=== PATIENT | male | born 1945 | race Caucasian/White ===

== ENCOUNTER → 2018-04-20 08:24 | Outpatient (CLI) | payer MEDICARE, SELFPAY ==
[2018-04-20 10:40] LABS: PSA,Total- Diagnostic 1.17 ng/mL (0.0-4.0)
[2018-04-20 10:42] LABS: AST(SGOT) 31 U/L (15-37); Alanine Aminotransfer ALT/SGPT 54 U/L (16-61); Albumin, Serum 3.7 g/dL (3.2-5.0); Alkaline Phosphatase 81 U/L (45-117); Bilirubin, Direct 0.26 mg/dL (0.00-0.30); Cholesterol 137 mg/dL (200); Globulin 3.3 g/dL (2.2-4.2); High Density Lipoprotein 71 mg/dL; Triglycerides 53 mg/dL; Very Low Density Lipoprotein 11 mg/dL (5-40)
== END ==
PROVIDERS: Family Provider Family Medicine; PCP Family Medicine; Visit Provider Internal Medicine Cardiovascular Disease
DX: N40.0 Benign prostatic hyperplasia without lower urinary tract symptoms (principal); E78.5 Hyperlipidemia, unspecified; Z79.899 Other long term (current) drug therapy
CPT/HCPCS: 36415; 80061; 80076; 84153

== ENCOUNTER → 2019-01-08 | Outpatient (CLI) | payer MEDICARE, SELFPAY ==
[2017-12-28 13:24] VITALS: BMI 21.4
[2019-01-08 10:22] LABS: AST(SGOT) 27 U/L (15-37); Alanine Aminotransfer ALT/SGPT 37 U/L (16-61); Alkaline Phosphatase 96 U/L (45-117); Bilirubin, Direct 0.26 mg/dL (0.00-0.30); Cholesterol 157 mg/dL (200); Globulin 3.3 g/dL (2.2-4.2); High Density Lipoprotein 78 mg/dL; Protein, Total 7.3 g/dL (6.4-8.2); Triglycerides 59 mg/dL; Very Low Density Lipoprotein 12 mg/dL (5-40)
== END | disposition home or self-care (01) ==
PROVIDERS: Family Provider Family Medicine; PCP Family Medicine; Referring Provider Internal Medicine Cardiovascular Disease; Visit Provider Internal Medicine Cardiovascular Disease
DX: E78.5 Hyperlipidemia, unspecified (principal)
CPT/HCPCS: 36415; 80061; 80076

== ENCOUNTER → 2019-10-17 15:04 | Outpatient (CLI) | payer MEDICARE, SELFPAY ==
[2019-07-15 09:53] VITALS: BMI 20.3
[2019-10-17 17:42] LABS: Absolute Lymphocyte Count 1.83 X10^3/uL (0.83-4.51); Basophil# 0.02 X10^3/uL; Basophil% 0.3 % (0-1); Eosinophil# 0.12 X10^3/uL; Eosinophils% 1.8 % (0-5); Hemoglobin 15.3 g/dL (13.0-16.5); Lymphocyte # 1.83 X10^3/ul (4.0); Lymphocyte % 27.1 % (19-41); Mean Corp Hgb Conc 33.3 g/dL (32-36); Mean Corpuscular Volume 93.1 fL (80-94); Mean Platelet Vol. 9.6 fl (6.2-12.0); Monocyte# 0.75 X10^3/uL; Monocyte% 11.1 % (0-10); NRBC Flagged by Analyzer 0 % (0-5); Neutrophil # 4.01 X10^3/uL (2.7-7.7); Neutrophil % 59.4 % (47-70); Platelet Count 341 K/mm3 (150-450); RBC Distribution Width CV 12.3 % (11.6-14.6); RBC Distribution Width SD 42.4 fl (35.1-43.9); Red Blood Count 4.94 M/mm3 (4.6-6.2); White Blood Count 6.8 K/mm3 (4.4-11.0)
[2019-10-17 17:44] LABS: Erythrocyte Sedimentation Rate 4 mm/hr (0-20)
[2019-10-17 18:16] LABS: ALB/GLOB Ratio 1.1 RATIO (0.9-2.4); AST(SGOT) 20 U/L (15-37); Alanine Aminotransfer ALT/SGPT 33 U/L (16-61); Albumin, Serum 3.9 g/dL (3.2-5.0); Alkaline Phosphatase 87 U/L (45-117); Anion Gap 5 (5-15); BUN 14 mg/dL (7-18); BUN/Creat Ratio 14.4 RATIO (10-20); Chloride 105 mmol/L (98-107); Cholesterol 154 mg/dL (200); Creatinine, Serum 0.97 mg/dL (0.70-1.30); EST Glomerular Filtration Rate 81 mL/min (>60); Est Glom Filt Rate - Afr Amer 97 mL/min (>60); Globulin 3.6 g/dL (2.2-4.2); Glucose 90 mg/dL (74-106); High Density Lipoprotein 94 mg/dL; Potassium 4.4 mmol/L (3.5-5.1); Protein, Total 7.5 g/dL (6.4-8.2); Sodium Level 137 mmol/L (136-145); Thyroid Stim Hormone (TSH) 1.35 uIU/mL (0.358-3.74); Triglycerides 45 mg/dL; Very Low Density Lipoprotein 9 mg/dL (5-40)
[2019-10-17 20:02] LABS: Microalbumin,Random Urine 13.9 mg/L (NO RANGE EST.); Microalbumin:Creatinine Ratio 15.2 mg/g CRE (<30 mg/g CRE)
== END ==
PROVIDERS: PCP Family Medicine; Visit Provider Family Medicine
DX: K51.90 Ulcerative colitis, unspecified, without complications (principal); I10 Essential (primary) hypertension
CPT/HCPCS: 36415; 80053; 80061; 82043; 82570; 84443; 85025; 85652

== ENCOUNTER → 2019-10-31 08:17 | Outpatient (CLI) | payer MEDICARE, SELFPAY ==
[2019-07-15 09:53] VITALS: BMI 20.3
--- NOTE | 2019-10-31 08:19 | US_ITS ---
STUDY: SCROTUM ULTRASOUND REASON FOR EXAM: Male, 74 years old. RT PALPABLE LESION TECHNIQUE: Ultrasound evaluation of the scrotum was performed with color Doppler and static mayer-scale imaging. COMPARISON: None. FINDINGS: RIGHT TESTICLE INTRATESTICULAR: There is a normal size of the right testicle. The right testicle measures 3.4 cm x 3.2 cm x 2.6 cm. There is a homogenous echotexture. There is normal arterial and normal venous vascularity. There is no demonstrated right testicular mass or cyst. EXTRATESTICULAR: The epididymis is normal in size. The epididymis head measures 1.1 cm x 0.5 cm x 0.9 cm. There is normal vascularity of the epididymis. There are 2 well-defined cystic structures within the epididymis, without internal echoes, consistent with an epididymal cyst. The larger measures 6 mm x 5 mm x 3 mm. There is a moderate size hydrocele. There is no demonstrated varicocele. There is no demonstrated extratesticular mass or cyst. LEFT TESTICLE INTRATESTICULAR: There is a normal size of the left testicle. The left testicle measures 3.9 cm x 3 cm x 1.7 cm. There is a homogenous echotexture. There is normal arterial and normal venous vascularity. There is no demonstrated left testicular mass or cyst. EXTRATESTICULAR: The epididymis is normal in size. The epididymis head measures 1.5 cm x 0.9 size by 1.0 cm. There is normal vascularity of the epididymis. There is a well-defined cystic structure within the epididymis, without internal echoes, consistent with an epididymal cyst. This measures 6 mm x 7 mm x 6 mm. There is a small hydrocele. There is no demonstrated varicocele. There is no demonstrated extratesticular mass or cyst. US/Testicular with Arterial Flow IMPRESSION: Bilateral hydroceles right greater than left. Small bilateral epididymal cysts. Electronically Signed: Benjie Odonnell, at 10:19 EST , Service support ,
== END ==
PROVIDERS: PCP Family Medicine; Referring Provider Family Medicine; Visit Provider Family Medicine
DX: N50.89 Other specified disorders of the male genital organs (principal)
CPT/HCPCS: 76870; 93976

== ENCOUNTER 2019-11-01 09:33 | Day surgery (SDC) | payer MEDICARE, SELFPAY ==
[2019-07-15 09:53] VITALS: BMI 20.3
--- NOTE | 2019-11-01 09:47 | EKG12_ITS ---
Test Reason : PRE OP Blood Pressure : / mmHG Vent. Rate : 073 BPM Atrial Rate : 073 BPM P-R Int : 166 ms QRS Dur : 090 ms QT Int : 404 ms P-R-T Axes : 074 -09 055 degrees QTc Int : 445 ms Normal sinus rhythm Inferior infarct , age undetermined Abnormal ECG No previous ECGs available Confirmed by EMILIA GODINEZ, LISA ([id number]), associate editor LES DONOVAN ([id number]) on 11/05/2019 8:58:26 AM Referred By: Camden Chino Confirmed By:LISA NIETO MD
[2019-11-01 10:05] VITALS: BP 145/74; PULSE 75; RESP 16; TEMP 36.6; O2SAT 99; BMI 20.7
[2019-11-01] MEDS: Lactated Ringers 1,000 ML 100 ML IV ×2 (10:18→12:05)
--- NOTE | 2019-11-01 11:10 | PHA_PTH ---
PATIENT: EDOUARD BAUER [place] [facility] [id number] AGE/SX: 74/M ROOM: RE11/01/[address]: Dr. Camden Chino MD : [id number] BED: DIS: 11/01/2019 SPEC #: [id number] RECD: 11/01/19 13:08 STATUS: COURTNEY MANAS #: [id number] LUCERO: 11/01/19 11:[address]: Camden Chino DEPT: SURGICAL PATHOLOGY RECD BY: Thierno Blanca ENTERED: 11/01/19 13:32 SP TYPE: PHARYNX BX OTHR DR: Dr. Camden Gaytan MD Tissues: Pharynx, NOS Procedures: Surgery Specimen Level IV HEADER OPERATION: Destruction of nasopharyngeal lesion PRE-OP DIAGNOSIS: Pharyngeal bursitis TISSUE SUBMITTED: Nasopharynx biopsy MICROSCOPIC DIAGNOSIS Nasopharynx, biopsy: Fragments of benign respiratory and squamous mucosa with minute lymphoid aggregates, negative for malignancy. See comment. SJ:seferino 11/04/19 COMMENT The findings may represent tonsillar/adenoid tissue. No obvious cyst lining is noted. Reactive changes are also noted. MICROSCOPIC DESCRIPTION Slides are reviewed. GROSS DESCRIPTION Received in fixative is one container labeled with the patient's name and designated nasopharynx biopsy. The specimen consists of multiple irregular fragments of light romo soft tissue that in aggregate measure 0.5 x 0.5 x 0.1 cm. The specimen is totally submitted in one cassette. / TAMMY:seferino 11/01/19 TC:5 CPT: 36315
--- NOTE | 2019-11-01 11:42 | OP.PCM_ITS ---
Problem List (1) Abscess of nasopharynx Status: Chronic Report of Operation Date of Procedure: 11/01/19 Pre-Operative Diagnosis: Draining Tornwalt's cyst Post-Operative Diagnosis: Same Surgery/Procedure Performed:: Excision of nasopharyngeal Tornwald's cyst Description of Surgical Findings:: Cecilio is a 74-year-old male who presents for evaluation of expectoration of globular tissue like objects with a bloody apical crust. 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 Given the ongoing nature of this and the significant irritation posed from this drainage excision was offered and he was eager to proceed. The risks, alternatives, potential complications, and benefits were discussed at length and any questions answered to the patient and/or caregiver's satisfaction. Witnessed informed consent was obtained in the office, and the patient and/or caregiver was agreeable to proceed. Procedure went as follows: The patient was identified in the preoperative holding and brought to the operating room, placed under general anesthesia and intubated. When appropriate anesthesia was obtained the head of bed was then rotated and the patient prepped and draped in usual sterile fashion. A Sebastien- Yordan mouthgag was then placed and the patient suspended from the [place] stand. Red rubber catheters were placed into each nostril and brought through the mouth to elevate the soft palate. Using a laryngeal mirror the adenoid bed visualized. There is noted to be a asymmetrical granular tissue bed that was very friable to gentle manipulation predominantly on the right side suggesting a recently ruptured nasopharyngeal cyst likely from manipulation in the office. A portion of this was then removed with a Gamez Hunter forceps for specimen a nd then the base of the nasopharyngeal cyst granulation broadly cauterized using suction electrocautery for electrodesiccation. Upon completion the rubber catheters were removed and the oral and nasal cavities irrigated with saline solution. An NG tube was placed to decompress the stomach and the patient returned to anesthesia, was revived and extubated without complication having tolerated the procedure well. Type of Anesthesia:: General Anesthesiologist: Sivakumar Jordan Special Medications: none Specimen's removed: nasopharyngeal lesion Drains: none Estimated Blood Loss (mL): 5 mL Fluids Replaced: 1000 mL Grafts/Implants Used: none - Complications none - Admit VTE Documentation VTE Present on Admission: No VTE Mechan Device Prophylaxis: SCD's VTE Pharm Prophylaxis ordered?: No
--- NOTE | 2019-11-01 11:48 | DCINST_ITS ---
- Discharge Diagnoses Current Active Problems: Current Active and Chronic Problems (Last Reviewed 07/15/19 @ 10:23 by FERNANDO Ravi) Abscess of nasopharynx (Chronic) You will use the following diet at home:: No restrictions Discharge Activity: Return to Normal Activity Call your doctor if your incision/area has: Sudden Increased Bleeding Call your doctor if you observe: Fever of 101 or Higher, Uncontrolled pain Allergies/Adverse Reactions: Allergies No Known Allergies Allergy (Verified 11/01/19 09:58) Medications to take at Discharge aspirin 81 mg tablet,delayed release 81 mg PO QDAY 10/24/17 mesalamine 1.2 gram tablet,delayed release 2.4 g PO QDAY 10/24/17 tamsulosin 0.4 mg capsule 0.4 mg PO QHS cap 10/24/17 nitroglycerin 0.4 mg sublingual tablet 0.4 mg SUBLINGUAL Q5-15M PRN #25 tab 01/14/19 lisinopril 10 mg tablet 10 mg PO QDAY #90 tab 02/04/19 atorvastatin 40 mg tablet 40 mg PO QDAY #90 tab 05/20/19 Primary Care Physician: Camden Gaytan MD [Primary Care Provider] - Test Results: Test results from this visit will be discussed in further detail at your follow- up appointment, if applicable. Please Follow Up With: Camden Chino MD When: 2 weeks
[2019-11-01 12:07] VITALS: BP 145/74; BP 149/91; PULSE 80; RESP 14; TEMP 36.1; O2SAT 95
[2019-11-01 12:15] VITALS: BP 145/74; BP 153/89; PULSE 76; RESP 16; O2SAT 96
[2019-11-01 12:18] VITALS: BP 145/74; BP 155/89; PULSE 65; RESP 16; O2SAT 97
[2019-11-01 12:22] VITALS: BP 145/74; BP 145/86; PULSE 69; RESP 16; TEMP 36.1; O2SAT 94
[2019-11-01 13:28] VITALS: BP 133/69; BP 145/74; PULSE 64; RESP 16; TEMP 36.2; O2SAT 94
== END 2019-11-01 13:30 | disposition home or self-care (01) ==
LOC: SDC 09:35 → AC 09:37
PROVIDERS: PCP Family Medicine; Referring Provider Otolaryngology; Visit Provider Otolaryngology
PROC: (CPT 42808; principal; 2019-11-01 10:55)
DX: J39.2 Other diseases of pharynx (principal); E78.00 Pure hypercholesterolemia, unspecified; I10 Essential (primary) hypertension; I25.10 Atherosclerotic heart disease of native coronary artery without angina pectoris; I34.1 Nonrheumatic mitral (valve) prolapse; Z85.828 Personal history of other malignant neoplasm of skin; Z79.82 Long term (current) use of aspirin; Z79.899 Other long term (current) drug therapy; Z87.891 Personal history of nicotine dependence
CPT/HCPCS: 00170; 42808; 88305; 93005; J7120; J2310; J2405

== ENCOUNTER → 2020-04-30 | Outpatient (CLI) | payer MEDICARE, SELFPAY ==
[2020-04-27 09:31] VITALS: BMI 19.7
[2020-04-30 08:14] LABS: AST(SGOT) 30 U/L (15-37); Alanine Aminotransfer ALT/SGPT 48 U/L (16-61); Albumin, Serum 3.7 g/dL (3.2-5.0); Alkaline Phosphatase 82 U/L (45-117); Bilirubin, Direct 0.29 mg/dL (0.00-0.30); Cholesterol 156 mg/dL (200); Globulin 3.4 g/dL (2.2-4.2); High Density Lipoprotein 91 mg/dL; Protein, Total 7.1 g/dL (6.4-8.2); Triglycerides 66 mg/dL; Very Low Density Lipoprotein 13 mg/dL (5-40)
== END | disposition home or self-care (01) ==
LOC: LAB 07:26
PROVIDERS: PCP Family Medicine; Referring Provider Internal Medicine Cardiovascular Disease; Visit Provider Internal Medicine Cardiovascular Disease
DX: I25.10 Atherosclerotic heart disease of native coronary artery without angina pectoris (principal); E78.00 Pure hypercholesterolemia, unspecified
CPT/HCPCS: 36415; 80061; 80076

== ENCOUNTER → 2020-05-21 | Outpatient (CLI) | payer MEDICARE, SELFPAY ==
[2020-04-27 09:31] VITALS: BMI 19.7
--- NOTE | 2020-05-21 07:59 | ECHOD_ITS ---
Reason For Study: Valve Replacement Eval Procedure This was a 2D Doppler, Color Flow transthoracic echocardiogram. The exam was of adequate technical quality. Exam performed in department. Left Ventricle Normal LV size. Left ventricular systolic function is normal. The estimated ejection fraction is 65 %. Diastolic function is indeterminate. No regional wall motion abnormalities noted. Right Ventricle Normal RV size. Normal systolic function. Atria The left atrium is mildly enlarged. Normal right atrium. No doppler evidence for ASD. Mitral Valve Mild diffuse mitral valve thickening. Mitral valve doming/Hockey Sticking. Trivial mitral valve insufficiency. An annuloplasty ring is noted in the mitral position. Tricuspid Valve Normal tricuspid valve. Mild tricuspid valve insufficiency. Right ventricular systolic pressure estimated to be 26 mmHg. Aortic Valve Trisinus/trileaflet aortic valve. Mild focal aortic valve thickening. Pulmonic Valve The pulmonic valve is not well visualized. Trivial pulmonic valve insufficiency. Great Vessels Normal sized aortic root. Pericardium/Pleural No pericardial effusion. MMode/2D Measurements & Calculations LVIDd: 4.0 cm IVSd: 1.00 cm Ao root diam: 2.4 cm LVIDs: 2.1 cm LVPWd: 0.86 cm RVDd: 3.1 cm FS: 46.2 % LAV(MOD-bp): 31.2 ml LVAd ap4: 21.6 cm2 SV(MOD-sp4): 36.0 ml LAV(MOD-bp) Indexed: 16.6 ml/m2 EDV(MOD-sp4): 52.1 ml LAV(MOD-sp2): 28.0 ml EDV(sp4-el): 53.3 ml LAV(MOD-sp4): 32.6 ml LVAs ap4: 10.5 cm2 ESV(MOD-sp4): 16.1 ml ESV(sp4-el): 15.3 ml EF(MOD-sp4): 69.1 % EF(sp4-el): 71.4 % SV(sp4-el): 38.0 ml LA A4 area: 14.2 cm2 LA dimension(2D): 3.7 cm RA A4 area: 11.4 cm2 Time Measurements MV dec time: 0.27 sec Doppler Measurements & Calculations MV E max [place]: 154.5 cm/sec Lat Peak E' [place]: 10.3 cm/sec Med Peak E' [place]: 5.3 cm/sec MV A max [place]: 164.1 cm/sec E/E' lat: 15.1 E/E' med: 29.2 MV E/A: 0.94 MV V2 max: 183.4 cm/sec MV P1/2t max [place]: 151.0 cm/sec Ao V2 max: 116.8 cm/sec MV max P.5 mmHg MV P1/2t: 138.0 msec Ao max P.5 mmHg MV V2 mean: 108.0 cm/sec Ao V2 mean: 82.7 cm/sec MV mean P.1 mmHg MV dec slope: 320.4 cm/sec2 Ao mean P.9 mmHg MV V2 VTI: 54.5 cm MVA(P1/2t): 1.6 cm2 Ao V2 VTI: 24.7 cm LV V1 max: 92.5 cm/sec PA V2 max: 106.9 cm/sec TR max [place]: 240.2 cm/sec LV V1 max P.4 mmHg TR max P.1 mmHg Interpretation Summary Left ventricular systolic function is normal. The estimated ejection fraction is 65 %. The left atrium is mildly enlarged. An annuloplasty ring is noted in the mitral position. Mild diffuse mitral valve thickening. Mitral valve doming/Hockey Sticking Trivial mitral valve insufficiency. Mild tricuspid valve insufficiency. Mild focal aortic valve thickening. Trivial pulmonic valve insufficiency. Right ventricular systolic pressure estimated to be 26 mmHg. Diastolic function is indeterminate. Ordering Physician: Lloyd Avila Referring Physician: Camden Gaytan Performed By: Jessica Jimenez RVT, RDCS and Student
== END | disposition home or self-care (01) ==
LOC: CVS 07:59
PROVIDERS: PCP Family Medicine; Referring Provider Internal Medicine Cardiovascular Disease; Visit Provider Internal Medicine Cardiovascular Disease
DX: I25.10 Atherosclerotic heart disease of native coronary artery without angina pectoris (principal); E78.00 Pure hypercholesterolemia, unspecified; I10 Essential (primary) hypertension; Z95.1 Presence of aortocoronary bypass graft; Z98.890 Other specified postprocedural states
CPT/HCPCS: 93306

== ENCOUNTER → 2020-09-29 12:11 | Outpatient (CLI) | payer MEDICARE, SELFPAY ==
[2020-04-27 09:31] VITALS: BMI 19.7
--- NOTE | 2020-09-29 12:15 | RAD_ITS ---
STUDY: X-RAY CHEST REASON FOR EXAM: Male, 74 years old. atypical pneumonia TECHNIQUE: PA and lateral views of the chest. COMPARISON: 04/09/2015. FINDINGS: The lungs are clear and expanded. There is no demonstrated pleural abnormality. Sternal cerclage wires are present from a prior sternotomy. Normal cardiac size. Normal mediastinum and praful. Normal visualized pulmonary arteries. There is atherosclerotic calcification of the aortic arch with tortuosity. Normal visualized thoracic spine. Normal visualized ribs, clavicles, and shoulders. There is no demonstrated abnormality of the visualized soft tissue structures of the upper abdomen. RAD/Chest PA and Lateral IMPRESSION: No acute cardiopulmonary disease. Electronically Signed: Gladys Alvarez MD at 0:29 EST , Service support ,
== END ==
PROVIDERS: PCP Family Medicine; Referring Provider Family Medicine; Visit Provider Family Medicine
DX: J18.9 Pneumonia, unspecified organism (principal)
CPT/HCPCS: 71046

== ENCOUNTER → 2021-02-01 10:05 | Outpatient (CLI) | payer MEDICARE, SELFPAY ==
[2020-04-27 09:31] VITALS: BMI 19.7
[2021-02-01 12:17] LABS: Absolute Lymphocyte Count 1.53 X10^3/uL (0.83-4.51); Absolute Neutrophil Count 3.1 X10^3/uL (2.0-7.7); Basophil# 0.02 X10^3/uL; Basophil% 0.4 % (0-1); Eosinophil# 0.15 X10^3/uL; Eosinophils% 2.7 % (0-5); Hematocrit 46.7 % (40-54); Hemoglobin 15.4 g/dL (13.0-16.5); Lymphocyte # 1.53 X10^3/ul (0.83-4.51); Lymphocyte % 27.8 % (19-41); Mean Platelet Vol. 9.6 fl (6.2-12.0); Monocyte% 12.7 % (0-10); NRBC Flagged by Analyzer 0 % (0-5); Neutrophil # 3.09 X10^3/uL (2.7-7.7); Neutrophil % 56.2 % (47-70); Platelet Count 312 K/mm3 (150-450); RBC Distribution Width CV 12.3 % (11.6-14.6); RBC Distribution Width SD 42.6 fl (35.1-43.9); Red Blood Count 4.97 M/mm3 (4.6-6.2); White Blood Count 5.5 K/mm3 (4.4-11.0)
[2021-02-01 12:48] LABS: ALB/GLOB Ratio 1.1 RATIO (0.9-2.4); AST(SGOT) 22 U/L (15-37); Alanine Aminotransfer ALT/SGPT 30 U/L (16-61); Albumin, Serum 3.8 g/dL (3.2-5.0); Alkaline Phosphatase 86 U/L (45-117); Anion Gap 9 (5-15); BUN 18 mg/dL (7-18); BUN/Creat Ratio 17.8 RATIO (10-20); CRP < 2.90 mg/L (0.0-3.0); Calcium,Total 8.9 mg/dL (8.5-10.1); Chloride 105 mmol/L (98-107); Cholesterol 167 mg/dL (200); Creatinine, Serum 1.01 mg/dL (0.70-1.30); EST Glomerular Filtration Rate 77 mL/min (>60); Est Glom Filt Rate - Afr Amer 93 mL/min (>60); Globulin 3.6 g/dL (2.2-4.2); Glucose 93 mg/dL (74-106); High Density Lipoprotein 93 mg/dL; Protein, Total 7.4 g/dL (6.4-8.2); Sodium Level 139 mmol/L (136-145); Triglycerides 100 mg/dL; Very Low Density Lipoprotein 20 mg/dL (5-40)
[2021-02-01 12:57] LABS: Microalbumin,Random Urine 49.3 mg/L (NO RANGE EST.)
== END ==
PROVIDERS: PCP Family Medicine; Visit Provider Family Medicine
DX: K51.90 Ulcerative colitis, unspecified, without complications (principal); I10 Essential (primary) hypertension
CPT/HCPCS: 36415; 80053; 80061; 82043; 82570; 85025; 86140

== ENCOUNTER → 2021-08-02 09:01 | Outpatient (CLI) | payer MEDICARE, SELFPAY ==
[2021-08-02 11:00] LABS: Anion Gap 3 (5-15); BUN 19 mg/dL (7-18); BUN/Creat Ratio 18.4 RATIO (10-20); Calcium,Total 9.3 mg/dL (8.5-10.1); Chloride 108 mmol/L (98-107); Creatinine, Serum 1.03 mg/dL (0.70-1.30); EST Glomerular Filtration Rate 75 mL/min (>60); Est Glom Filt Rate - Afr Amer 91 mL/min (>60); Ferritin 84 ng/mL (26-388); Glucose 64 mg/dL (74-106); Magnesium 2.3 mg/dL (1.6-2.6); Potassium 4.1 mmol/L (3.5-5.1); Sodium Level 140 mmol/L (136-145)
== END ==
PROVIDERS: PCP Family Medicine; Referring Provider Family Medicine; Visit Provider Family Medicine
DX: R25.2 Cramp and spasm (principal)
CPT/HCPCS: 36415; 80048; 82728; 83735

== ENCOUNTER 2021-10-19 15:12 | Outpatient (CLI) | payer MEDICARE, SELFPAY ==
--- NOTE | 2021-10-19 15:15 | RAD_ITS ---
History: NECK AND SHOULDER PAIN Cervical spine 7 views including flexion and extension lateral views: Findings: No fracture or subluxation. Disc space narrowing and vertebral body spurring noted at the C5-6 and C6-7 levels. The right C3-4 and C4-5 neural foramina are narrowed secondary to uncinate joint hypertrophy and facet arthropathy. Limited range of motion with flexion and extension. Precervical soft tissues are normal. IMPRESSION:No acute abnormality. Spondylosis as described. at 1537 Reported and signed by: Brian Gallardo MD Electronically Signed: Brian Gallardo MD at 15:36 EST Tel , Service support , RAD/Cerv Spine Obl/Flex/Ext Comp
[2021-10-19 15:19] LABS: Lyme Ab Screen Interpretation REF LAB
[2021-10-19 17:43] LABS: Absolute Lymphocyte Count 1.91 X10^3/uL (0.83-4.51); Absolute Neutrophil Count 4.4 X10^3/uL (2.0-7.7); Basophil# 0.02 X10^3/uL; Basophil% 0.3 % (0-1); Eosinophil# 0.21 X10^3/uL; Eosinophils% 2.9 % (0-5); Hematocrit 43.2 % (40-54); Hemoglobin 14.7 g/dL (13.0-16.5); Lymphocyte # 1.91 X10^3/ul (0.83-4.51); Lymphocyte % 26.2 % (19-41); Mean Corpuscular Hgb 31.7 pg (27.0-32.0); Mean Corpuscular Volume 93.3 fL (80-94); Mean Platelet Vol. 9.6 fl (6.2-12.0); Monocyte# 0.76 X10^3/uL; Monocyte% 10.4 % (0-10); NRBC Flagged by Analyzer 0 % (0-5); Neutrophil # 4.37 X10^3/uL (2.7-7.7); Neutrophil % 60.1 % (47-70); Platelet Count 331 K/mm3 (150-450); RBC Distribution Width CV 12.3 % (11.6-14.6); RBC Distribution Width SD 42.3 fl (35.1-43.9); Red Blood Count 4.63 M/mm3 (4.6-6.2); White Blood Count 7.3 K/mm3 (4.4-11.0)
[2021-10-19 17:58] LABS: Vitamin D,25 Hydroxy 39.9 ng/mL
[2021-10-19 18:07] LABS: ALB/GLOB Ratio 1.1 RATIO (0.9-2.4); AST(SGOT) 20 U/L (15-37); Alanine Aminotransfer ALT/SGPT 35 U/L (16-61); Albumin, Serum 3.9 g/dL (3.2-5.0); Alkaline Phosphatase 73 U/L (45-117); Anion Gap 5 (5-15); BUN 20 mg/dL (7-18); BUN/Creat Ratio 20.7 RATIO (10-20); CRP < 2.90 mg/L (0.0-3.0); Chloride 106 mmol/L (98-107); Creatinine, Serum 0.96 mg/dL (0.70-1.30); EST Glomerular Filtration Rate 81 mL/min (>60); Est Glom Filt Rate - Afr Amer 98 mL/min (>60); Globulin 3.6 g/dL (2.2-4.2); Glucose 91 mg/dL (74-106); Magnesium 2.3 mg/dL (1.6-2.6); Potassium 4.3 mmol/L (3.5-5.1); Protein, Total 7.5 g/dL (6.4-8.2); Sodium Level 138 mmol/L (136-145)
[2021-10-21 15:00] LABS: Lyme Scn Total Ab w/Rflx <0.91 ISR (0.00-0.90)
== END 2021-10-19 23:59 | disposition short-term general hospital (02) ==
LOC: MTLAB 15:13
PROVIDERS: PCP Family Medicine; Referring Provider Family Medicine; Visit Provider Family Medicine
DX: M54.2 Cervicalgia (principal); M25.50 Pain in unspecified joint
CPT/HCPCS: 36415; 72052; 80053; 82306; 83735; 85025; 86140; 86618

== ENCOUNTER 2021-11-11 10:30 | Outpatient (RCR) | payer MEDICARE, SELFPAY ==
--- NOTE | 2021-10-21 13:22 | HP.PTEVAL_ITS ---
Patient's Visit Information EDOUARD BAUER is a 75 year old M referred to Physical Therapy by Dr. Camden Gaytan MD with a diagnosis of CERVICALALGIA ON RIGHT, MILD MILD RADIATION. Date of Evaluation: 10/21/21 Physical Therapist: Main Huynh, PT, Cert MDT, OCS - Visit Plan Frequency: 2x /Week Duration: 6 Weeks Plan: PT INTERVTIONS US,CP,ICTX 16#-25# ,CERVIACL PSOTURAL EX' S AND MANUAL THERPY - Subjective This 75 y/o female presents to physical therapy with cervical pain radiating right UT . Patient has had these symptoms ~ 1 month which has progressively worse . Seen DR had x-rays and recommended PT. Aggravating factors turning head right ,extension .flexion with sharp pain. Alleviating rest. Denies paresthesia/tingling . Denies CALDERON/dizziness/tinnitus. Tried chiropractor manipulator. Pain affects sleeping . Patient has had no h/o trauma. Patient condition affects QOL and function. Patient goals to decrease pain. SOCIAL: . VOCATION: retired - Pain Right Neck Pain Intensity (Out of 10): 8 Pain Intensity Range: 10 - Objective POSTURE: mild forward posture rounded shoulders. NEURO: denies paresthesia/tingling ,reflexes C5-6-7 1/3..mytomes intact. PALAPTION: tender UT, levator. CERVICAL ROM: flexion min loss, extension mod loss pain ,lateral flexion /rotation mod loss pain to right. MMT: grossly 4/5 except 4-/5 - Special Tests C/S Radiculapathy - Left Upper limb tension test: Negative C/S Radiculapathy - Right Upper limb tension test: Negative C/S Radiculapathy - Left Spurlings: Negative C/S Radiculapathy - Right Spurlings: Positive C/S Radiculapathy - Left Cervical distraction: Negative C/S Radiculapathy - Right Cervical distraction: Negative C/S Radiculapathy - Left Relief test: Negative C/S Radiculapathy - Right Relief test: Negative C/S Radiculapathy - Valsalva: Negative Sharp Lynette: Negative Vertebral Artery Test: Negative Alar Ligament Test: Negative Cervical Sitting: Protrusion - Mechanical Response: No effect Cervical Sitting: Protrusion - Symptoms During Testing: No effect Cervical Sitting: Retraction - Mechanical Response: No effect Cervical Sitting: Retraction - Symptoms During Testing: Produces Cervical Sitting: Retraction - Symptoms After Testing: No worse Cervical Sitting: Retraction-Extension - Mechanical Response: No effect Cerv Sitting: Retraction-Extension - Symptoms During Testing: Produces Cerv Sitting: Retraction-Extension - Symptoms After Testing: Worse Cervical Sitting: Sidebend Right - Mechanical Response: No effect Cervical Sitting: Sidebend Right - Symptoms During Testing: Produces Cervical Sitting: Sidebend Right - Symptoms After Testing: Worse Cervical Sitting: Sidebend Left - Mechanical Response: No effect Cervical Sitting: Sidebend Left - Symptoms During Testing: Decreases Cervical Sitting: Sidebend Left - Symptoms After Testing: Better Cervical Sitting: Rotation Right - Mechanical Response: No effect Cervical Sitting: Rotation Right - Symptoms During Testing: Produces Cervical Sitting: Rotation Right - Symptoms After Testing: Worse Cervical Sitting: Rotation Left - Mechanical Response: No effect Cervical Sitting: Rotation Left - Symptoms During Testing: Decreases Cervical Sitting: Rotation Left - Symptoms After Testing: Better Cervical Sitting: Flexion - Mechanical Response: No effect Cervical Sitting: Flexion - Symptoms During Testing: Increases Cervical Sitting: Flexion - Symptoms After Testing: No worse - Balance/Special Test Scores Oswestry Neck Score: 15 - Goals Goal 1:: Patient to be I with HEP for posture Goal Time Frame: 4-6 Weeks Goal 2:: Patient to improve posture for ADLS 90% of the time Goal Time Frame: 4-6 Weeks Goal 3:: Patient improve cervical ROM for 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 Goal Time Frame: 4-6 Weeks Goal 4:: Patient to improve neck owestry by 5points to improve function QOL Goal Time Frame: 4-6 Weeks Goal 5:: Patient to improve functional activity and ADLS' to improve Goal Time Frame: 4-6 Weeks - Rehabilitation Potential Physical Therapy Diagnosis: Patient has right lateral foraminal stenosis with pain produces with pain with motion testing to right and extension along with functional activity thus will benefit from skilled PT Rehabilitation Potential: Good - Anticipated Interventions Patient/Client Instruction: Educate patient on: Condition, Plan of Care For the Purpose of:: To decrease pain, To increase ROM, To improve muscle performance and motor function, To increase tolerance to activity/condition/position, To improve ability of physical actions for home/community/work/leisure, To improve health of tissue, To decrease soft tissue restriction, To increase flexibility/ROM Therapeutic Exercise to Include: Strength training, Postural training, Flexibilty training, Active ROM For the Purpose of:: To decrease pain, To increase ROM, To improve muscle performance and motor function, To improve ability to perform ADL's, To improve ability of physical actions for home/community/work/leisure, To improve health of tissue, To decrease soft tissue restriction, To increase flexibility/ROM, To reduce risk of recurrence Manual Therapy Techniques to Include: Mobilization Comment: TRACTION For the Purpose of:: To decrease pain, To increase ROM TENS: Yes IF ES: Yes Cryotherapy (ice pack, ice massage): Yes Ultrasound (thermal/non thermal): Yes For the Purpose of:: To decrease pain, To increase ROM, To improve nutrient delivery to tissue, To increase oxygenation perfusion, To improve health of tissue, To decrease soft tissue restriction Thank you for the opportunity to evaluate your patient. For Medicare and Medicare HMO plans, please review the plan of care and approve it. It will need to be FAXED BACK to us at [phone] for Medicare purposes. For Medicare only, by signing this I certify the plan of care. Please let me know if there are questions or concerns regarding this plan of care. Physician Signature: Date:
== END 2021-11-11 19:00 | disposition home or self-care (01) ==
LOC: PT 10:30
PROVIDERS: PCP Family Medicine; Referring Provider Family Medicine; Visit Provider Family Medicine
DX: M54.2 Cervicalgia (principal)
CPT/HCPCS: 97012; 97035; 97110; 97162

== ENCOUNTER → 2022-03-24 | Outpatient (CLI) | payer MEDICARE, SELFPAY ==
[2022-03-24 10:06] LABS: Anion Gap 5 (5-15); BUN 29 mg/dL (7-18); BUN/Creat Ratio 24.8 RATIO (10-20); Chloride 106 mmol/L (98-107); Creatinine, Serum 1.17 mg/dL (0.70-1.30); EST Glomerular Filtration Rate 65 mL/min (>60); Est Glom Filt Rate - Afr Amer 78 mL/min (>60); Glucose 98 mg/dL (74-106); PSA,Total - Annual Screen 1.09 ng/mL (0.00-4.00); Potassium 4.4 mmol/L (3.5-5.1); Sodium Level 137 mmol/L (136-145)
[2022-03-24 10:08] LABS: AST(SGOT) 23 U/L (15-37); Alanine Aminotransfer ALT/SGPT 34 U/L (16-61); Albumin, Serum 3.7 g/dL (3.2-5.0); Alkaline Phosphatase 78 U/L (45-117); Bilirubin, Direct 0.19 mg/dL (0.00-0.30); Cholesterol 153 mg/dL (200); Globulin 3.5 g/dL (2.2-4.2); High Density Lipoprotein 78 mg/dL; Protein, Total 7.2 g/dL (6.4-8.2); Triglycerides 65 mg/dL; Very Low Density Lipoprotein 13 mg/dL (5-40)
== END | disposition home or self-care (01) ==
LOC: LAB 08:37
PROVIDERS: PCP Family Medicine; Referring Provider Nurse Practitioner Family; Visit Provider Nurse Practitioner Family
DX: Z00.00 Encounter for general adult medical examination without abnormal findings (principal); N40.0 Benign prostatic hyperplasia without lower urinary tract symptoms; I10 Essential (primary) hypertension; M79.10 Myalgia, unspecified site; Z12.5 Encounter for screening for malignant neoplasm of prostate
CPT/HCPCS: 36415; 80048; 80061; 80076; 84153; G0103

== ENCOUNTER → 2022-03-29 | Outpatient (CLI) | payer MEDICARE, SELFPAY ==
--- NOTE | 2022-03-29 08:33 | STRESSREP_ITS ---
Stress Test Report Date: 03-29-2022 Procedure: Pharmacologic stress nuclear imaging study Indications: Shortness of breath/dyspnea on exertion; CAD; CABG; status post mitral valve repair; status post left atrial appendage ligation; postoperative atrial fibrillation; hyperlipidemia; hypertension Consent: Per the patient Procedure: The patient underwent pharmacologic (Regadenoson 0.4mg ) evaluation with a peak heart rate of 85 beats per minute (58%predicted maximal heart rate) and a peak blood pressure of 140/72 mmHg. The baseline ECG demonstrated sinus bradycardia. The peak pharmacologic ECG demonstrated no obvious ECG changes. There were no cardiac dysrhythmias pretest, during pharmacologic infusion, or recovery. There was no complaint of chest discomfort during pharmacologic infusion or recovery. The examination was discontinued secondary to completion of protocol. Impression: 1. Pharmacologic (Regadenoson) evaluation 2. Peak pharmacologic ECG with no obvious ECG changes. 3. There were no cardiac dysrhythmias pretest, during pharmacologic infusion, or recovery. 4. Nuclear images pending Myocardial perfusion imaging study: Technique: The patient was injected with 11.8 millicuries of technetium 99m Cardiolite and subsequently rest SPECT Cardiolite nuclear imaging was obtained in the horizontal long, vertical long, and short axis views. The patient underwent pharmacologic (Regadenoson) evaluation with a peak heart rate of 85 beats per minute (58% percent predicted maximal heart rate) and a peak blood pressure of 140/72 mmHg. The patient was injected with 34.4 millicuries of technetium 99m Cardiolite and subsequently stress SPECT Cardiolite nuclear imaging was obtained in the horizontal long, vertical long, and short axis views. A gated Cardiolite study at peak stress was obtained. Interpretation: Rest and stress SPECT Cardiolite nuclear imaging status post realignment, normalization, and attenuation correction demonstrate relative uniform tracer uptake and myocardial perfusion appearing within normal limits. There is end systolic thickening and brightening. The gated Cardiolite study demonstrates myocardial thickening and inward wall motion. The reported LVEF is 78%. Impression: 1. Rest and stress SPECT Cardiolite nuclear imaging demonstrate relative uniform tracer uptake and myocardial perfusion appearing within normal limits. 2. The gated Cardiolite study reports an LVEF of 78%. This note was generated with [employer] software. It may contain incorrect words, spelling, and punctuation that were not noted in checking the note before signing.
== END | disposition home or self-care (01) ==
PROVIDERS: PCP Family Medicine; Referring Provider Nurse Practitioner Family; Visit Provider Nurse Practitioner Family
DX: I25.10 Atherosclerotic heart disease of native coronary artery without angina pectoris (principal); R06.09 Other forms of dyspnea; R53.81 Other malaise; R53.83 Other fatigue; Z95.1 Presence of aortocoronary bypass graft
CPT/HCPCS: 78452; 93017; A9500; A4216; J2785

== ENCOUNTER → 2022-12-16 | Outpatient (CLI) | payer MEDICARE, SELFPAY ==
[2022-12-16 09:30] LABS: Absolute Lymphocyte Count 1.78 X10^3/uL (0.83-4.51); Absolute Neutrophil Count 3.8 X10^3/uL (2.0-7.7); Basophil# 0.02 X10^3/uL; Basophil% 0.3 % (0-1); Eosinophil# 0.45 X10^3/uL; Eosinophils% 6.6 % (0-5); Hematocrit 43.5 % (40-54); Hemoglobin 14.3 g/dL (13.0-16.5); Lymphocyte # 1.78 X10^3/ul (0.83-4.51); Mean Corp Hgb Conc 32.9 g/dL (32-36); Mean Corpuscular Hgb 31.2 pg (27.0-32.0); Mean Corpuscular Volume 94.8 fL (80-94); Mean Platelet Vol. 9.3 fl (6.2-12.0); Monocyte# 0.77 X10^3/uL; Monocyte% 11.2 % (0-10); NRBC Flagged by Analyzer 0 % (0-5); Neutrophil # 3.81 X10^3/uL (2.7-7.7); Neutrophil % 55.6 % (47-70); Platelet Count 318 K/mm3 (150-450); RBC Distribution Width SD 41.9 fl (35.1-43.9); Red Blood Count 4.59 M/mm3 (4.6-6.2); White Blood Count 6.9 K/mm3 (4.4-11.0)
[2022-12-16 10:02] LABS: AST(SGOT) 29 U/L (15-37); Alanine Aminotransfer ALT/SGPT 40 U/L (16-61); Albumin, Serum 3.5 g/dL (3.2-5.0); Alkaline Phosphatase 86 U/L (45-117); Bilirubin, Direct 0.21 mg/dL (0.00-0.30); Cholesterol 138 mg/dL (200); Globulin 3.4 g/dL (2.2-4.2); High Density Lipoprotein 73 mg/dL; Protein, Total 6.9 g/dL (6.4-8.2); Triglycerides 57 mg/dL; Very Low Density Lipoprotein 11 mg/dL (5-40)
[2022-12-16 10:06] LABS: ALB/GLOB Ratio 1.1 RATIO (0.9-2.4); AST(SGOT) 28 U/L (15-37); Alanine Aminotransfer ALT/SGPT 41 U/L (16-61); Albumin, Serum 3.5 g/dL (3.2-5.0); Alkaline Phosphatase 88 U/L (45-117); Anion Gap 6 (5-15); BUN 23 mg/dL (7-18); BUN/Creat Ratio 23.4 RATIO (10-20); Calcium,Total 8.9 mg/dL (8.5-10.1); Chloride 106 mmol/L (98-107); Creatinine, Serum 0.98 mg/dL (0.70-1.30); EST Glomerular Filtration Rate 79 mL/min (>60); Est Glom Filt Rate - Afr Amer 95 mL/min (>60); Globulin 3.3 g/dL (2.2-4.2); Glucose 103 mg/dL (74-106); Potassium 4.1 mmol/L (3.5-5.1); Protein, Total 6.8 g/dL (6.4-8.2); Sodium Level 141 mmol/L (136-145)
== END | disposition home or self-care (01) ==
LOC: LAB 09:05
PROVIDERS: Nurse Practitioner Family; PCP Family Medicine; Referring Provider Family Medicine; Visit Provider Family Medicine
DX: K51.90 Ulcerative colitis, unspecified, without complications (principal); E78.00 Pure hypercholesterolemia, unspecified
CPT/HCPCS: 36415; 80053; 80061; 80076; 85025

== ENCOUNTER → 2023-02-09 | Outpatient (CLI) | payer MEDICARE, SELFPAY ==
--- NOTE | 2023-02-09 10:58 | ECHOD_ITS ---
Reason For Study: S/P MV RING Procedure This was a 2D Doppler, Color Flow transthoracic echocardiogram. Exam performed in department. Left Ventricle Normal LV size. Left ventricular systolic function is normal. The estimated ejection fraction is 55 %. Stage 1 diastolic dysfunction. No regional wall motion abnormalities noted. Right Ventricle Normal RV size. Normal systolic function. Atria Normal left atrium. Normal right atrium. Mitral Valve Status post mitral valve repair with annuloplasty ring. Tricuspid Valve Normal tricuspid valve. Mild (1+) tricuspid valve insufficiency. Pulmonary artery systolic pressure is 40 mmHg. Aortic Valve Trisinus/trileaflet aortic valve. Pulmonic Valve Normal pulmonic valve. Great Vessels Normal aortic root. The pulmonary artery is normal size. Normal inferior vena cava. Pericardium/Pleural No pericardial effusion. MMode/2D Measurements & Calculations LVIDd: 4.8 cm IVSd: 0.78 cm Ao root diam: 3.0 cm LVIDs: 3.6 cm LVPWd: 0.93 cm RVDd: 3.5 cm FS: 25.2 % LAV(MOD-bp): 61.1 ml LVAd ap4: 20.9 cm2 LVAd ap2: 26.3 cm2 LAV(MOD-bp) Indexed: 32.0 ml/m2 LVLd ap4: 6.7 cm LVLd ap2: 8.1 cm LAV(MOD-sp2): 53.4 ml EDV(MOD-sp4): 58.8 ml EDV(MOD-sp2): 71.9 ml LAV(MOD-sp4): 63.0 ml EDV(sp4-el): 55.6 ml EDV(sp2-el): 72.3 ml LVAs ap4: 11.4 cm2 LVAs ap2: 15.1 cm2 LVLs ap4: 5.0 cm LVLs ap2: 6.9 cm ESV(MOD-sp4): 23.7 ml ESV(MOD-sp2): 29.0 ml ESV(sp4-el): 21.9 ml ESV(sp2-el): 28.1 ml EF(MOD-sp4): 59.7 % EF(MOD-sp2): 59.7 % EF(sp4-el): 60.6 % SV(MOD-sp4): 35.1 ml SV(MOD-sp2): 42.9 ml SV(sp4-el): 33.7 ml LA dimension(2D): 4.0 cm LA A4 area: 19.7 cm2 RA A4 area: 15.7 cm2 Time Measurements MV dec time: 0.34 sec Doppler Measurements & Calculations MV E max [place]: 154.5 cm/sec Lat Peak E' [place]: 11.2 cm/sec Med Peak E' [place]: 10.5 cm/sec MV A max [place]: 160.7 cm/sec E/E' lat: 13.8 E/E' med: 14.7 MV E/A: 0.96 MV V2 max: 186.7 cm/sec MV P1/2t max [place]: 160.2 cm/sec Ao V2 max: 122.4 cm/sec MV max P.0 mmHg MV P1/2t: 121.5 msec Ao max P.0 mmHg MV V2 mean: 114.7 cm/sec MV dec slope: 386.1 cm/sec2 Ao V2 mean: 87.0 cm/sec MV mean P.8 mmHg Ao mean P.4 mmHg MV V2 VTI: 55.2 cm MVA(P1/2t): 1.8 cm2 Ao V2 VTI: 33.4 cm AV (velocity ratio): 0.57 LV V1 max: 86.1 cm/sec PA V2 max: 130.4 cm/sec PI dec slope: 197.1 cm/sec2 LV V1 max P.0 mmHg PA V2 mean: 86.5 cm/sec LV V1 mean P.7 mmHg LV V1 mean: 63.8 cm/sec LV V1 VTI: 19.0 cm TR max [place]: 303.0 cm/sec TR max P.7 mmHg ECHO/Echo Complete Interpretation Summary Status post mitral valve repair with annuloplasty ring. Normal LV size. Left ventricular systolic function is normal. The estimated ejection fraction is 55 %. Stage 1 diastolic dysfunction. Ordering Physician: Lloyd Avila Referring Physician: Camden Gaytan Performed By: Danny, Carol, RDCS, RVT
== END | disposition home or self-care (01) ==
LOC: CVS 10:56
PROVIDERS: PCP Family Medicine; Referring Provider Internal Medicine Cardiovascular Disease; Visit Provider Internal Medicine Cardiovascular Disease
DX: I10 Essential (primary) hypertension (principal); Z79.890 Hormone replacement therapy; E78.00 Pure hypercholesterolemia, unspecified; I25.10 Atherosclerotic heart disease of native coronary artery without angina pectoris; Z95.1 Presence of aortocoronary bypass graft
CPT/HCPCS: 93306

== ENCOUNTER 2023-09-12 10:09 | Outpatient (CLI) | payer MEDICARE, SELFPAY ==
[2023-09-12 12:35] LABS: Anion Gap 3 (5-15); BUN 17 mg/dL (7-18); BUN/Creat Ratio 18.7 RATIO (10-20); Calcium,Total 9.1 mg/dL (8.5-10.1); Chloride 108 mmol/L (98-107); Cholesterol 160 mg/dL (200); Creatinine, Serum 0.91 mg/dL (0.70-1.30); EST Glomerular Filtration Rate 86 mL/min (>60); Est Glom Filt Rate - Afr Amer 104 mL/min (>60); Glucose 100 mg/dL (74-106); Potassium 4.2 mmol/L (3.5-5.1); Sodium Level 138 mmol/L (136-145)
[2023-09-12 12:54] LABS: Microalbumin,Random Urine 29.8 mg/L (NO RANGE EST.); Microalbumin:Creatinine Ratio 24.6 mg/g CRE (<30 mg/g CRE)
[2023-09-13 08:10] LABS: LDL, Direct 120295 74 mg/dL (0-99)
== END 2023-09-12 23:59 | disposition home or self-care (01) ==
PROVIDERS: PCP Family Medicine; Visit Provider Family Medicine
DX: I25.10 Atherosclerotic heart disease of native coronary artery without angina pectoris (principal); I10 Essential (primary) hypertension
CPT/HCPCS: 36415; 80048; 82043; 82465; 82570; 83721

== ENCOUNTER → 2024-03-15 | Outpatient (CLI) | payer MEDICARE, SELFPAY ==
[2024-03-15 10:11] LABS: Bacteria 0 SEEN /hpf (None Seen); Mucous, Urine 0 SEEN /hpf (<or=2+); Squamous Epithelial Cells - UA 0 SEEN /hpf (0-5)
[2024-03-15 12:29] LABS: Erythrocyte Sedimentation Rate 2 mm/hr (0-20)
[2024-03-15 12:32] LABS: Absolute Lymphocyte Count 1.57 X10^3/uL (0.83-4.51); Absolute Neutrophil Count 4.3 X10^3/uL (2.0-7.7); Basophil# 0.02 X10^3/uL; Basophil% 0.3 % (0-1); Eosinophil# 0.11 X10^3/uL; Eosinophils% 1.6 % (0-5); Hematocrit 46.7 % (40-54); Hemoglobin 15.4 g/dL (13.0-16.5); Lymphocyte # 1.57 X10^3/ul (0.83-4.51); Lymphocyte % 22.6 % (19-41); Mean Corpuscular Hgb 31.6 pg (27.0-32.0); Mean Corpuscular Volume 95.7 fL (80-94); Mean Platelet Vol. 9.7 fl (6.2-12.0); NRBC Flagged by Analyzer 0 % (0-5); Neutrophil # 4.32 X10^3/uL (2.7-7.7); Neutrophil % 62.2 % (47-70); Platelet Count 321 K/mm3 (150-450); RBC Distribution Width CV 12.4 % (11.6-14.6); RBC Distribution Width SD 43.6 fl (35.1-43.9); Red Blood Count 4.88 M/mm3 (4.6-6.2); White Blood Count 6.9 K/mm3 (4.4-11.0)
[2024-03-15 12:39] LABS: Color, Urine Yellow (Yellow); Glucose, Dipstick Normal (Normal); Ketone-Dipstick Negative (Negative); Leukocyte Esterase-Dipstick 25 /ul (Negative); Nitrite-Dipstick Negative (Negative); Occult Blood-Urine 10 /ul (Negative); Protein-Dipstick Negative (Negative); Specific Gravity, Urine 1.015 (1.002-1.030); Urine Bilirubin Dipstick Negative (Negative); Urine Clarity Clear (Clear); Urine Urobilinogen Normal (Normal)
[2024-03-15 13:02] LABS: Red Blood Cells-Urine 0-5 SEEN /hpf (0-5); White Blood Cells 0-5 SEEN /hpf (0-5)
[2024-03-15 13:44] LABS: Microalbumin,Random Urine 26.8 mg/L (NO RANGE EST.); Microalbumin:Creatinine Ratio 22.5 mg/g CRE (<30 mg/g CRE)
[2024-03-15 14:12] LABS: ALB/GLOB Ratio 1.1 RATIO (0.9-2.4); AST(SGOT) 27 U/L (15-37); Alanine Aminotransfer ALT/SGPT 32 U/L (16-61); Albumin, Serum 3.9 g/dL (3.2-5.0); Alkaline Phosphatase 88 U/L (45-117); Anion Gap 8 (5-15); BUN 15 mg/dL (7-18); BUN/Creat Ratio 15.9 RATIO (10-20); CRP < 2.90 mg/L (0.0-3.0); Calcium,Total 9.3 mg/dL (8.5-10.1); Chloride 105 mmol/L (98-107); Creatinine, Serum 0.95 mg/dL (0.70-1.30); EST Glomerular Filtration Rate 82 mL/min (>60); Est Glom Filt Rate - Afr Amer 100 mL/min (>60); Globulin 3.4 g/dL (2.2-4.2); Glucose 101 mg/dL (74-106); PSA,Total- Diagnostic 1.09 ng/mL (0.0-4.0); Potassium 4.4 mmol/L (3.5-5.1); Protein, Total 7.3 g/dL (6.4-8.2); Sodium Level 140 mmol/L (136-145)
== END | disposition home or self-care (01) ==
LOC: MFPLAB 10:09
PROVIDERS: PCP Family Medicine; Visit Provider Family Medicine
DX: N40.0 Benign prostatic hyperplasia without lower urinary tract symptoms (principal); K51.90 Ulcerative colitis, unspecified, without complications; I10 Essential (primary) hypertension
CPT/HCPCS: 36415; 80053; 81001; 82043; 82570; 84153; 85025; 85652; 86140; 87086

== ENCOUNTER → 2024-08-05 | Outpatient (CLI) | payer MEDICARE, SELFPAY ==
[2024-08-05 08:21] LABS: Anion Gap 5 (5-15); BUN 25 mg/dL (7-18); BUN/Creat Ratio 22.9 RATIO (10-20); Calcium,Total 8.8 mg/dL (8.5-10.1); Chloride 106 mmol/L (98-107); Creatinine, Serum 1.09 mg/dL (0.70-1.30); EST Glomerular Filtration Rate 70 mL/min (>60); Est Glom Filt Rate - Afr Amer 84 mL/min (>60); Glucose 109 mg/dL (74-106); Potassium 4.3 mmol/L (3.5-5.1); Sodium Level 138 mmol/L (136-145)
== END | disposition home or self-care (01) ==
LOC: LAB 07:16
PROVIDERS: PCP Family Medicine; Referring Provider Physician Assistant Medical; Visit Provider Physician Assistant Medical
DX: I10 Essential (primary) hypertension (principal)
CPT/HCPCS: 36415; 80048

== ENCOUNTER → 2024-08-12 | Outpatient (CLI) | payer MEDICARE, SELFPAY | END | disposition home or self-care (01) | LOC: CVS 06:18 | PROVIDERS: PCP Family Medicine; Referring Provider Physician Assistant Medical; Visit Provider Physician Assistant Medical | DX: R07.9 Chest pain, unspecified (principal); Z95.1 Presence of aortocoronary bypass graft | CPT/HCPCS: 78452; 93017; A9500; A4216 ==

== ENCOUNTER 2024-08-20 10:33 | Day surgery (SDC) | payer MEDICARE, SELFPAY ==
--- NOTE | 2024-08-12 06:21 | EKG12_ITS ---
Test Reason : PREOP Blood Pressure : */* mmHG Vent. Rate : 69 BPM Atrial Rate : 69 BPM P-R Int : 188 ms QRS Dur : 96 ms QT Int : 394 ms P-R-T Axes : 71 -18 71 degrees QTcB Int : 422 ms Normal sinus rhythm Normal ECG Reconfirmed by EMILIA GODINEZ, LISA ([id number]), scientific editor LUAN VIVAR ([id number]) on 08/13/2024 6:38:50 AM Referred By: Kelley Mercado Confirmed By: LISA NIETO MD
[2024-08-12 09:13] LABS: Hematocrit 44.4 % (40-54); Hemoglobin 14.6 g/dL (13.0-16.5); Mean Corp Hgb Conc 32.9 g/dL (32-36); Mean Corpuscular Hgb 31.1 pg (27.0-32.0); Mean Corpuscular Volume 94.7 fL (80-94); Platelet Count 309 K/mm3 (150-450); RBC Distribution Width CV 11.9 % (11.6-14.6); RBC Distribution Width SD 41.4 fl (35.1-43.9); Red Blood Count 4.69 M/mm3 (4.6-6.2)
[2024-08-12 09:40] LABS: Prothrombin Time (Protime)PT. 13.2 SECONDS (11.7-14.9)
[2024-08-12 09:41] LABS: Partial Thromboplast Time 29.3 Seconds (24.1-36.2)
[2024-08-12 09:42] LABS: AST(SGOT) 24 U/L (15-37); Alanine Aminotransfer ALT/SGPT 31 U/L (16-61); Albumin, Serum 3.7 g/dL (3.2-5.0); Alkaline Phosphatase 81 U/L (45-117); Bilirubin, Direct 0.22 mg/dL (0.00-0.30); Globulin 3.5 g/dL (2.2-4.2); Protein, Total 7.2 g/dL (6.4-8.2)
[2024-08-20] VITALS (8 sets, daily range): BP systolic 127–162; BP diastolic 73–83; PULSE 65–74; RESP 14–97; TEMP 36.3–36.4; O2SAT 96–100; BMI 20.6
--- NOTE | 2024-08-20 10:37 | PCM.HP.STD ---
HPI - General General Date of Service: 08/20/24 HPI Narrative EDOUARD BAUER, is a 78 M who presents for umbilical and incisional hernia repair with possible mesh. Patient states that the epigastric wound still has increased in size over time but not too much since last office visit. Patient denies pain at the umbilicus or epigastric hernia currently. Patient otherwise denies any changes since last office visit. office visit 04/02/24 HPI HPI: 78-year-old male presents due to possible incisional and umbilical hernias. Patient states a previous had open heart surgery in 2004 and states maybe in the last 5 years the epigastric area seems to have increased in size denies any pain. States this was one of the locations of the tubes after surgery. [facility] Medical History (Updated 08/06/24 @ 11:06 by Padmini Ibarra) Wears glasses Cancer Alcohol use Arthritis Easy bruising History of GI bleed Former smoker History of echocardiogram History of stress test Hypertension Cardiology follow-up encounter Rheumatic mitral valve prolapse Non-rheumatic tricuspid valve insufficiency Pure hypercholesterolemia Essential hypertension Postoperative atrial fibrillation Ulcerative colitis Hyperlipidemia Hypertension Atherosclerotic heart disease of [place] coronary artery without angina pectoris Long-term use of high-risk medication Home Medications ?Medication ?Instructions ?Recorded ?Last Taken ?Type aspirin 81 mg tablet,delayed 81 mg PO QDAY 10/24/17 08/11/24 History release (Adult Low Dose Aspirin) mesalamine 1.2 gram tablet,delayed 2.4 g PO QDAY 10/24/17 08/20/24 History release (Lialda) tamsulosin 0.4 mg capsule (Flomax) 0.4 mg PO QHS 10/24/17 08/19/24 History diclofenac sodium 1 % topical gel 2 g topical ONCE PRN pain 10/12/22 Unknown History (Arthritis Pain (diclofenac)) nitroglycerin 0.4 mg sublingual 0.4 mg sublingual Q5-15M PRN chest 04/19/23 Unknown Rx tablet pain #25 tabs lisinopril 10 mg tablet 10 mg PO BID #180 tabs 01/10/24 08/20/24 Rx atorvastatin 40 mg tablet 40 mg PO DAILY #90 TABLETS 06/19/24 08/19/24 Rx hydrochlorothiazide 25 mg tablet 25 mg PO DAILY #90 tabs 08/12/24 08/19/24 Rx Allergy/AdvReac Type Severity Reaction Status Date / Time No Known Allergies Allergy Verified 08/20/24 10:53 Family History Father Myocardial infarction CAD (coronary artery disease) Mother Myocardial infarction CAD (coronary artery disease) Brother CAD (coronary artery disease) Hx cardiac stents COPD (chronic obstructive pulmonary disease) Surgical History (Updated 08/06/24 @ 11:06 by Padmini Ibarra) History of cardiac catheterization Hx of surgical procedure History of radiofrequency ablation (RFA) of nerve of cervical spine S/P Mohs surgery for basal cell carcinoma History of mitral valve repair (~02/07/05) Aortocoronary bypass status (~02/07/05) Social History Smoking Status: Former smoker how long ago did patient quit smokin alcohol intake: current alcohol intake frequency: 0-2 drinks per day Alcohol type: beer and wine details: 1 mixed drink daily substance use type: does not use caffeine: Yes Type: coffee and tea what type of physical activity do you participate in: bicycling, aerobics and weight training frequency: 3-4 times per week duration: 15-30 minutes/day seatbelt use: always do you feel safe at home: Yes Vital Signs Vital Signs Vital Signs: Weight Weight: 151 lb Physical Exam Const oriented x3 and no apparent distress Resp normal respiratory effort Cardio regular rate GI soft to palpation and non-tender GI Narrative: hernia (Epigastric/incisional-reducible about 1 cm ) umbilical ( 1cm -reducible) Inspection: Negative for abdominal distention Extremity normal to inspection Results Lab / Micro Data 08/12/24 08:41 Assessment & Plan Assessment/Plan (1) Incisional hernia: (2) Umbilical hernia: PLAN: Plan Plan to do an incisional and umbilical hernia repair with possible mesh. Reviewed the procedure with the patient including the risks, including but not limited to infection, bleeding, injury to the small bowel, and recurrence. All questions were answered. Patient is agreeable with plan. Kelley Mercado M.D. Pager: [phone] [facility] [address] [place] [address], [address] [place] [address] Office: [phone]
[2024-08-20] MEDS: Lactated Ringers 1,000 ML 15 ML IV (11:03)
--- NOTE | 2024-08-20 11:40 | PRE.ANES_ITS ---
ASA Classification* ASA Classification ASA Classification: 3 Assessment & Plan Anesthesia* Anesthesia Assessment Anesthesia Assessment: Discussed sedation and/or anesthesia options, risks, benefits, and alternatives with patient/parents/legal guardian/POA. Questions invited. The patient/parents/legal guardian/POA seems to understand and agrees to proceed with anesthesia plan. Reviewed the physical assessment, medical history, allergy history and patient home medications list prior to surgery/procedure/anesthetic and documented any changes. Performed airway and anesthesia risk assessments. Anesthesia Type Anesthesia Type: General History Source History Obtained from:: Patient and Chart Anesthesia Focused Assessment* Temperature: 97.5 F Pulse Rate: 72 Blood Pressure: 128/73 Respiratory Rate: 16 Pulse Ox: 98 Oxygen Delivery Method: Room Air Airway Assessment Mouth opens: >3 cm Mallampati Score: II Teeth Condition: Caps/Crowns (Patient has 3 caps. They are all tight.) and Partial (Patient has 2 permanent bridges. Permanent bridges.) Neck Range of motion (ROM): Full ROM Focused Labs Anesthesia Preop lab: CBC WBC 7.0 K/mm3 (4.4-11.0) 08/12/24 08:41 RBC 4.69 M/mm3 (4.6-6.2) 08/12/24 08:41 Hgb 14.6 g/dL (13.0-16.5) 08/12/24 08:41 Hct 44.4 % (40-54) 08/12/24 08:41 Plt Count 309 K/mm3 (150-450) 08/12/24 08:41 CHEMISTRY Potassium 4.3 mmol/L (3.5-5.1) 08/05/24 07:26 Sodium 138 mmol/L (136-145) 08/05/24 07:26 Magnesium 2.3 mg/dL (1.6-2.6) 10/19/21 15:18 BUN 25 mg/dL (7-18) H 08/05/24 07:26 Creatinine 1.09 mg/dL (0.70-1.30) 08/05/24 07:26 Glucose 109 mg/dL (74-106) H 08/05/24 07:26 TSH 1.35 uIU/mL (0.358-3.74) 10/17/19 15:06 COAG PT 13.2 SECONDS (11.7-14.9) 08/12/24 08:41 Pre-Assessment Diagnosis/Proposed Procedure Planned Operative Procedure(s): Hernia, Umbilical Repair w/ Mesh & open incisional hernia Anesthesia History 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 When Was Last Pacemaker Check QUESTION #4 FULL TEXT: You/Your Family Experience fever (hyperthermia) with Anesthesia Last Oral Intake Last Oral intake: Last Oral Intake NPO since 06:00 08/20/24 10:59 Meds taken in AM with sips of Yes 08/20/24 10:59 water? Meds patient instructed to LISINOPRIL 08/20/24 10:59 take am of surgery LIALDA Any additional information?: Yes NPO since: 06:00 (Patient had coffee at 6 AM.) Meds taken in AM with sips of water?: Yes PONV PONV - [employer] silv[employer]ure: PONV - [employer] Female No 08/06/24 11:07 HX of Motion Sickness No 08/06/24 11:07 HX of N/V After Surgery No 08/06/24 11:07 Non-Smoker Yes 08/06/24 11:07 Duration of Surgery greater Yes 08/06/24 11:07 than 60 minutes Number of Risk Factors 2 08/06/24 11:07 PONV Score Moderate Risk 08/06/24 11:07 Height & Weight Height & Weight: Anesthesia: Height & Weight Height 5 ft 11 in 08/20/24 10:59 Weight: 67.1 kg 08/20/24 10:59 Body Mass Index (BMI) 20.6 08/20/24 10:59 Respiratory Assessment Respiratory Assessment - forester silviculture: Respiratory Tract Infection Hx - fore[employer] silv[employer] Hx Respiratory Tract Infection No 08/06/24 11:07 STOP Sleep Apnea STOP Sleep Apnea - fore[employer] silv[employer]ure: STOP Sleep Apnea - fore[employer] silv[employer] Hx Hypertension Yes: CONTROLLED ON MED 08/06/24 11:07 Hx Sleep Apnea No 08/06/24 11:07 CPAP No 11/01/19 12:07 BIPAP Do you snore loudly (louder No 08/06/24 11:07 than talking or can be heard Do you often feel tired/ No 08/06/24 11:07 fatigued/ sleepy during daytime? Has anyone observed you stop No 08/06/24 11:07 breathing during sleep? STOP Results Negative 08/06/24 11:07 QUESTION #5 FULL TEXT : Do you snore loudly (louder than talking or can be heard through closed doors)? 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 Specify any problems Hx of Preganancy in last 3 N/A 08/06/24 11:07 Months Nurse Filling Out Transfusion VCHRISTIN 08/06/24 11:07 & Questions: Date: 08/06/24 08/06/24 11:07 Time: 11:08 08/06/24 11:07 Patient unable to answer at this time (ie. confused, unrespo /Reproduction History /Reproductive History - [employer]: /Reproductive Hx- [employer] Hx Now No 08/06/24 11:07 Gestational Age (in weeks): EDC: Hx Hx Para Hx Section SAB No 08/06/24 11:07 Active Medications Active Medications: Current Medications Generic Name Dose Route Start Last Admin Trade Name Freq PRN Reason Stop Dose Admin Cefazolin Sodium 2 gm/ N/A 20 mls @ 400 mls/hr 08/20/24 11:55 IV 08/20/24 11:57 PREOP ONE Lactated Ringer's 1,000 mls @ 15 mls/hr 08/20/24 10:45 08/20/24 11:03 IV 08/26/24 00:04 15 mls/hr .Q48H JAYDE Administration Protocol [facility] Medical History Wears glasses Cancer Alcohol use Arthritis Easy bruising History of GI bleed Former smoker History of echocardiogram History of stress test Hypertension Cardiology follow-up encounter Rheumatic mitral valve prolapse Non-rheumatic tricuspid valve insufficiency Pure hypercholesterolemia Essential hypertension Postoperative atrial fibrillation Ulcerative colitis Hyperlipidemia Hypertension Atherosclerotic heart disease of [place] coronary artery without angina pectoris Long-term use of high-risk medication Home Medications ?Medication ?Instructions ?Recorded ?Last Taken ?Type aspirin 81 mg tablet,delayed 81 mg PO QDAY 10/24/17 08/11/24 History release (Adult Low Dose Aspirin) mesalamine 1.2 gram tablet,delayed 2.4 g PO QDAY 10/24/17 08/20/24 History release (Lialda) tamsulosin 0.4 mg capsule (Flomax) 0.4 mg PO QHS 10/24/17 08/19/24 History diclofenac sodium 1 % topical gel 2 g topical ONCE PRN pain 10/12/22 Unknown History (Arthritis Pain (diclofenac)) nitroglycerin 0.4 mg sublingual 0.4 mg sublingual Q5-15M PRN chest 04/19/23 Unknown Rx tablet pain #25 tabs lisinopril 10 mg tablet 10 mg PO BID #180 tabs 01/10/24 08/20/24 Rx atorvastatin 40 mg tablet 40 mg PO DAILY #90 TABLETS 06/19/24 08/19/24 Rx hydrochlorothiazide 25 mg tablet 25 mg PO DAILY #90 tabs 08/12/24 08/19/24 Rx Allergy/AdvReac Type Severity Reaction Status Date / Time No Known Allergies Allergy Verified 08/20/24 10:53 Family History Father Myocardial infarction CAD (coronary artery disease) Mother Myocardial infarction CAD (coronary artery disease) Brother CAD (coronary artery disease) Hx cardiac stents COPD (chronic obstructive pulmonary disease) Surgical History History of cardiac catheterization Hx of surgical procedure History of radiofrequency ablation (RFA) of nerve of cervical spine S/P Mohs surgery for basal cell carcinoma History of mitral valve repair (~02/07/05) Aortocoronary bypass status (~02/07/05) Social History Smoking Status: Former smoker how long ago did patient quit smokin alcohol intake: current alcohol intake frequency: 0-2 drinks per day Alcohol type: beer and wine details: 1 mixed drink daily substance use type: does not use caffeine: Yes Type: coffee and tea what type of physical activity do you participate in: bicycling, aerobics and weight training frequency: 3-4 times per week duration: 15-30 minutes/day seatbelt use: always do you feel safe at home: Yes Review of Systems (Anesthesia) ROS Narrative System reviewed and no additional complaints, except as documented.
[2024-08-20] MEDS: Cefazolin 2 GM in Syringe IV (12:44)
--- NOTE | 2024-08-20 13:31 | PCM.OPRPT ---
Operative Report (Standard) Operative Information Surgery/Procedure Performed: Incisional hernia pair with mesh, umbilical hernia repair primary repair Surgeon: Kelley Mercado Date of Procedure: 08/20/24 Procedure Start Time: 13:08 Procedure Stop Time: 13:39 Pre-Operative Diagnosis: Incisional hernia?epigastric, umbilical hernia Post-Operative Diagnosis: Same Select all DRAINS/GRAFTS/IMPLANTS that apply: Prosthetic device Prosthetic device details: Incisional hernia?epigastric Ventralex ST hernia patch 4.3 cm [facility] [id number] Type of Anesthesia: General/Supplemental Special Medications: Ancef 2 g x 1 Estimated Blood Loss: < 10 cc Specimen collected: No Description of surgery: Patient was brought into the room placed supine on the operating table. Correct patient, procedure, site, positioning, special, was verified prior to procedure. General anesthesia was induced. The abdomen was prepped draped in usual sterile fashion. A curvilinear incision was made below the umbilicus with a 15 blade scalpel. This was deepened with electrocautery. A hemostat was used to go around the stalk of the umbilicus and Metzenbaum scissors was used to carefully divide the hernia sac from the skin of the umbilicus. The fascia around the hernia defect was cleared and the hernia defect measured 1 x 1 cm. This was primarily closed using a 1 Nurolon [id number] suture. The wound was irrigated with saline. Hemostasis was assured. The skin of the umbilicus was secured to the fascia using Nurolon suture. Vertical midline incision made over the incisional hernia with a 15 blade scalpel. This was deepened with electrocautery. The adipose tissue was reduced into the abdomen. The fascia around the hernia defect was cleared. The fascial defect was 1.5 cm x [address] hernia patch 4.3 cm was selected. This was secured laterally at its tails with 1 Nurolon horizontal mattress suture. The hernia defect was closed with a [id number] 1 Nurolon. The incision was closed with 3-0 Vicryl subdermal interrupted sutures and the skin was closed with interrupted 4-0 Monocryl sutures. Steri-Strips and Tegaderm and OpSite were placed over the incision and sterile cotton balls were placed in the umbilicus. Patient was extubated. Patient tolerated procedure well and was taken to the postanesthesia care unit in stable condition. Surgical Findings: Incisional epigastric hernia and umbilical hernia House Parent color depositing machine tender: Yes [place] Cutting Machine Operator: Caryn Sheehan Tasks completed by medical assistant: Opening & closing Complications Complications: No
[2024-08-20] MEDS: Bupivacaine Mpf 0.5% 30 ML VIAL (13:34)
--- NOTE | 2024-08-20 13:35 | EX.PCM.DISCH ---
Discharge Instructions Diet Discharge Diet: Light diet - advance as tolerated Activity May shower in (days): 5 (Keep umbilical dressing clean dry and intact for 5 days. Okay to tape off with a Ziploc bag to shower. Or lower shower and upper sponge bath.) Lifting Restrictions: no lifting >20 lbs x 2 wks, no strenuous exercise for 4 wks Additional Activity Instructions:: - Dressing / Incision Call your doctor if your incision/area has: Continuous Slow Oozing, Sudden Increased Bleeding, Increased Pain/ Swelling, Increased Redness, Foul Smelling Discharge and Swelling at the incision site Call your doctor if you observe: Fever of 101 or Higher Remove Dressing in: 5 days (After 5 days okay to remove surgical dressing. Place cotton ball or rolled up gauze in bellybutton and retape daily for 2 more days.) Cleanse incision/area with: Do not get Incision Wet (for 5 days) Additional Dressing/Incision Instructions:: Steri-Strips will fall off in 7 to 10 days, if they do not fall off okay to remove after 10 days. Follow Up Care Please Follow Up With: Kelley Mercado MD When: Call the office for a follow-up appointment 2 weeks; after 5 PM and on the weekends call [phone] with any concerns. Test Results: Test results from this visit will be discussed in further detail at your follow-up appointment, if applicable. Discharge Plan Admission Attending Provider: Kelley Mercado Primary Care Provider: Camden Gaytan Instructions Print Language: Montenegrin Discharge Orders/Prescriptions Prescriptions: New tramadol 50 mg tablet 50 mg PO Q6H PRN (Reason: pain) Qty: 5 0RF Continued mesalamine [Lialda] 1.2 gram tablet,delayed release (DR/EC) 2.4 g PO QDAY tamsulosin [Flomax] 0.4 mg capsule,extended release 24hr 0.4 mg PO QHS diclofenac sodium [Arthritis Pain (diclofenac)] 1 % gel 2 g topical ONCE PRN (Reason: pain) Rx Instructions: apply to single elbow, wrist or hand; for hand includes palm/fingers/back of hand lisinopril 10 mg tablet 10 mg PO BID Qty: 180 4RF hydrochlorothiazide 25 mg tablet 25 mg PO DAILY Qty: 90 3RF nitroglycerin 0.4 mg tablet, sublingual 0.4 mg SUBLINGUAL Q5-15M PRN (Reason: chest pain) Qty: 25 1RF atorvastatin 40 mg tablet 40 mg PO DAILY Qty: 90 3RF Held aspirin [Adult Low Dose Aspirin] 81 mg tablet,delayed release (DR/EC) 81 mg PO QDAY Hold Instructions: Resume on 08/21/24. Patient Comments: STOP 1 WEEK PRIOR TO PROCEDURE Referrals / Follow Up: Camden Gaytan MD [Primary Care Provider] - Disposition Disposition (needs filled in before D/C Order can be placed): Home, Self Care
--- NOTE | 2024-08-20 13:54 | PCM.POST.ANE ---
Anesthesia: Postop Eval I Current Vital Signs Temperature: 97.4 F Pulse Rate: 74 Blood Pressure: 133/83 Respiratory Rate: 14 Pulse Ox: 96 Oxygen Delivery Method: Room Air Assessment Airway patent: Yes Spontaneous unlabored respirations: Yes Mental status: Awake nausea: No Vomiting: No Anesthesia Complication: No Fluid Hydration Crystalloid volume administer (ml): 700 Total IV fluid infused: 700 Progress Note Anesthesia document: Postop Eval 1 completed: Yes
--- NOTE | 2024-08-20 16:11 | POSTOPAN2_ITS ---
Anesthesia Postop Eval I Sum Postop Eval Completion status Anesthesia document: Postop Eval 1 completed: Yes Anesthesia Postop Eval I Summary Anesthesia Postop Eval I Summary: Anesthesia Postop Eval I: Assessment Summary Airway patent Yes 08/20/24 13:56 [email or web address] Spontaneous unlabored Yes 08/20/24 13:56 [email or web address] respirations Mental status Awake 08/20/24 13:56 [email or web address] nausea No 08/20/24 13:56 [email or web address] Vomiting No 08/20/24 13:56 [email or web address] Anesthesia Postop Eval I: Fluid Summary Crystalloid volume administer 700 08/20/24 13:56 [email or web address] (ml) Colloids volume administered ( ml) Blood Product volume administered (ml) Total IV fluid infused 700 08/20/24 13:56 [email or web address] Anesthesia Postop Eval I: Summary Notes Anesthesia Complication No 08/20/24 13:56 [email or web address] [email or web address] Anesthesia Complication Comment: Post-operative progress note Anesthesia: Postop Eval II Evaluation Mental status: Awake and Calm Pain Level: 1 nausea: No Vomiting: No Complications Anesthesia Complication: No
--- NOTE | 2024-08-20 16:11 | PCM.POSTANE2 ---
Anesthesia Postop Eval I Sum Postop Eval Completion status Anesthesia document: Postop Eval 1 completed: Yes Anesthesia Postop Eval I Summary Anesthesia Postop Eval I Summary: Anesthesia Postop Eval I: Assessment Summary Airway patent Yes 08/20/24 13:56 [email or web address] Spontaneous unlabored Yes 08/20/24 13:56 UMBRELLA [email or web address] respirations Mental status Awake 08/20/24 13:56 [email or web address] [email or web address] nausea No 08/20/24 13:56 UMBRELLA [email or web address] Vomiting No 08/20/24 13:56 [email or web address] [email or web address] Anesthesia Postop Eval I: Fluid Summary Crystalloid volume administer 700 08/20/24 13:56 [email or web address] (ml) Colloids volume administered ( ml) Blood Product volume administered (ml) Total IV fluid infused 700 08/20/24 13:56 UMBRELLA [email or web address] Anesthesia Postop Eval I: Summary Notes Anesthesia Complication No 08/20/24 13:56 [email or web address] [email or web address] Anesthesia Complication Comment: Post-operative progress note Anesthesia: Postop Eval II Evaluation Mental status: Awake and Calm Pain Level: 1 nausea: No Vomiting: No Complications Anesthesia Complication: No
== END 2024-08-20 15:06 | disposition home or self-care (01) ==
LOC: SDC 10:33 → AC 10:34
PROVIDERS: Anesthesiology; PCP Family Medicine; Referring Provider Surgery; Visit Provider Surgery
PROC: (CPT 49593; principal; 2024-08-20 11:40)
DX: K43.2 Incisional hernia without obstruction or gangrene (principal); K50.90 Crohn's disease, unspecified, without complications; K42.9 Umbilical hernia without obstruction or gangrene; I05.9 Rheumatic mitral valve disease, unspecified; I10 Essential (primary) hypertension; I25.10 Atherosclerotic heart disease of native coronary artery without angina pectoris; E78.00 Pure hypercholesterolemia, unspecified; Z95.2 Presence of prosthetic heart valve; Z95.1 Presence of aortocoronary bypass graft; Z87.19 Personal history of other diseases of the digestive system; Z79.82 Long term (current) use of aspirin; Z79.899 Other long term (current) drug therapy; Z87.891 Personal history of nicotine dependence; Z85.828 Personal history of other malignant neoplasm of skin; R07.9 Chest pain, unspecified
CPT/HCPCS: 49593; 36415; 80076; 85027; 85610; 85730; 93005; J7120; C1781; J2405

== ENCOUNTER → 2025-04-10 | Outpatient (CLI) | payer MEDICARE, SELFPAY ==
[2025-04-10 10:33] LABS: Hematocrit 38.6 % (40-54); Hemoglobin 13.1 g/dL (13.0-16.5); Immature Granulocytes Count 0.010 X10^3/uL (0.0-0.0); Mean Corp Hgb Conc 33.9 g/dL (32-36); Mean Corpuscular Volume 93.9 fL (80-94); Mean Platelet Vol. 9.8 fl (6.2-12.0); NRBC Flagged by Analyzer 0 % (0-5); Platelet Count 313 K/mm3 (150-450); RBC Distribution Width CV 12.6 % (11.6-14.6); RBC Distribution Width SD 43.6 fl (35.1-43.9); Red Blood Count 4.11 M/mm3 (4.6-6.2); White Blood Count 5.6 K/mm3 (4.4-11.0)
[2025-04-10 11:29] LABS: Creatinine, Urine (random) 217.00 mg/dL (39.00-259.00)
[2025-04-10 11:30] LABS: Microalbumin,Random Urine 16.5 mg/L (NO RANGE EST.)
[2025-04-10 11:40] LABS: AST(SGOT) 22 U/L (<=37); Alanine Aminotransfer ALT/SGPT 17 U/L (<=46); Albumin, Serum 4.1 g/dL (3.4-4.8); Alkaline Phosphatase 70 U/L (40-129); Anion Gap 13 (5-15); BUN 21 mg/dL (4-19); BUN/Creat Ratio 18.2 RATIO (10-20); Calcium,Total 9.3 mg/dL (7.6-11.0); Carbon Dioxide 20.9 mmol/L (21.0-32.0); Chloride 104 mmol/L (98-108); Cholesterol 145 mg/dL (<=200); Ferritin 163 ng/mL (37-417); Globulin 2.7 g/dL (2.2-4.2); Glucose 82 mg/dL (70-99); Low Density Lipoprotein Calc. 58 mg/dL; Potassium 4.1 mmol/L (3.3-5.1); Triglycerides 68 mg/dL; Very Low Density Lipoprotein 14 mg/dL (5-40); cholesterol:hdl ratio screen 1.98
[2025-04-10 11:44] LABS: CRP < 3.00 mg/L (0.0-3.0)
== END | disposition home or self-care (01) ==
LOC: MFPLAB 08:06
PROVIDERS: PCP Family Medicine; Referring Provider Family Medicine; Visit Provider Family Medicine
DX: K51.90 Ulcerative colitis, unspecified, without complications (principal); I25.10 Atherosclerotic heart disease of native coronary artery without angina pectoris; I10 Essential (primary) hypertension
CPT/HCPCS: 36415; 80053; 80061; 82043; 82570; 82728; 85025; 86140

== ENCOUNTER → 2025-09-09 | Outpatient (CLI) | payer MEDICARE, SELFPAY ==
[2025-09-09 15:12] LABS: Hematocrit 43.6 % (40-54); Hemoglobin 14.7 g/dL (13.0-16.5); Mean Corp Hgb Conc 33.7 g/dL (32-36); Mean Corpuscular Volume 94.0 fL (80-94); Mean Platelet Vol. 9.9 fl (6.2-12.0); Platelet Count 330 K/mm3 (150-450); RBC Distribution Width CV 12.9 % (11.6-14.6); RBC Distribution Width SD 44.3 fl (35.1-43.9); Red Blood Count 4.64 M/mm3 (4.6-6.2); White Blood Count 6.7 K/mm3 (4.4-11.0)
[2025-09-09 15:51] LABS: Anion Gap 12 (5-15); BUN 19 mg/dL (4-19); BUN/Creat Ratio 20.6 RATIO (10-20); Calcium,Total 9.3 mg/dL (7.6-11.0); Carbon Dioxide 23.0 mmol/L (21.0-32.0); Chloride 104 mmol/L (98-108); Glucose 88 mg/dL (70-99); Potassium 4.7 mmol/L (3.3-5.1)
== END | disposition home or self-care (01) ==
LOC: MFPLAB 11:58
PROVIDERS: PCP Family Medicine; Visit Provider Family Medicine
DX: I10 Essential (primary) hypertension (principal)
CPT/HCPCS: 36415; 80048; 85027